=== PATIENT | female | born 1960 | race African-American/Black ===

== ENCOUNTER 2016-11-07 08:00 | Inpatient (IN) | payer MEDICARE, OTHER ==
[~2016-11-07 08:00] MED LIST: MORPHINE SULFATE 15 MG TABLET.SA PO PRN; RINGER'S SOLUTION,LACTATED 1,000 ML IV PRN; ROPIVACAINE HCL/PF 100 MG, EPINEPHrine 0.2 MG, KETOROLAC TROMETHAMINE 30 MG in NORMAL S... IJ PRN; TRANEXAMIC ACID 1,000 MG in NORMAL SALINE 100 ML IV PRN; ceFAZolin SODIUM 1 GM VIAL IV PRN
[2017-02-13] MEDS ORDERED: TRANEXAMIC ACID 1,000 MG in NORMAL SALINE 100 ML IV PRN (06:00)
[2017-02-13] MEDS ORDERED: ceFAZolin SODIUM 1 GM VIAL IV PRN (06:00)
[2017-02-13] MEDS ORDERED: RINGER'S SOLUTION,LACTATED 1,000 ML IV PRN (06:00)
[2017-02-13] MEDS ORDERED: MORPHINE SULFATE 15 MG TABLET.SA PO PRN (06:00)
[2017-02-13] MEDS ORDERED: ROPIVACAINE HCL/PF 100 MG, KETOROLAC TROMETHAMINE 30 MG, EPINEPHrine 0.2 MG in NORMAL S... IJ PRN (06:00)
[2017-02-13] MEDS ORDERED: RINGER'S SOLUTION,LACTATED 1,000 ML IV ONE ×3 (09:30→11:05)
--- NOTE | 2017-02-13 12:06 | OR ---
Anesthesia Procedure Note - Anesthesia Procedure Note Date of Service: 02/13/17 Narrative: Vital Signs - Last Taken Temp 36.7 C 02/13/17 12:02 Pulse 56 L 02/13/17 12:02 Resp 18 02/13/17 12:02 BP 132/75 02/13/17 12:02 Pulse Ox 98 02/13/17 12:02 O2 Oxygen Delivery Method Room Air 02/13/17 12:05 ANESTHESIA PROCEDURE NOTE Date of Procedure: 02/13/2017. Time of procedure: 929. Performed by: Waqar Mahmood CRNA Inspector Clip On Sunglasses: None. Preprocedure diagnosis: Left total knee arthroplasty. Post procedure diagnosis: Same. Procedure: Left ultrasound guided femoral block for postoperative analgesia. Indications: The patient is a 57 -year-old female who is requesting an ultrasound-guided femoral nerve block for postoperative analgesia related to left total knee arthroplasty. Findings: See below. Details of the procedure: The tissue over the intended target site was cleansed with ChloraPrep. 1 ml Lidocaine 1 % was infiltrated to the skin and subcutaneous tissue. Under sterile technique and ultrasound guidance a 21-gauge block needle was inserted anterior to the left femoral nerve . 30 mL's of 0.5% bupivacaine plus epinephrine 1:200,000 was injected after negative aspiration for blood. Needle tip and spread of local anesthetic surrounding the femoral nerve was observed throughout the injection with realtime ultrasound visualization. The needle was removed intact. No complications were noted. The images were retained in the Hospital medical database . EBL: Minimal. Fluids: N/A. Specimen: N/A. Post procedure condition: The patient tolerated the procedure well. No complications were noted. Thank you for this consultation. Waqar Mahmood CRNA
[2017-02-13] MEDS ORDERED: ACETAMINOPHEN 500 MG TABLET PO PRN (12:27)
[2017-02-13] MEDS ORDERED: ZOLPIDEM TARTRATE 5 MG TABLET PO PRN (12:27)
[2017-02-13] MEDS ORDERED: oxyCODONE HCL/ACETAMINOPHEN 1 TAB TABLET PO PRN (12:27)
[2017-02-13] MEDS ORDERED: MAGNESIUM HYDROXIDE 30 ML UDC PO PRN (12:27)
[2017-02-13] MEDS ORDERED: MAG HYDROX/ALUMINUM HYD/SIMETH 30 ML UDC PO PRN (12:27)
[2017-02-13] MEDS ORDERED: diphenhydrAMINE HCL 50 MG/ML VIAL IV PRN (12:27)
[2017-02-13] MEDS ORDERED: HYDROmorphone HCL 1 MG/ML DISP.SYRIN IV PRN (12:27)
[2017-02-13] MEDS ORDERED: PROMETHAZINE HCL 5 MG in DEXTROSE 5 % IN WATER 50 ML IV PRN ×2 (12:27)
--- NOTE | 2017-02-13 12:27 | POSTOP NO ---
Date of Surgery: 02/13/17 Anesthesia: spinal Patient Tolerated the Procedure: Well Post Operative Diagnosis/Procedures: Wholesale Loan Processor: Emir Horton PA-C Post-operative Diagnosis: Left knee degenerative joint disease Finding: Above Procedure: Left total knee arthroplasty Estimated Blood Loss: Minimal Specimens: Bone for disposal
[2017-02-13] MEDS ORDERED: NITROGLYCERIN 0.4 MG/TAB BTL SL PRN (12:29)
--- NOTE | 2017-02-13 12:31 | OR ---
Operative Report - Dictated Report Narrative: Date: 02/13/2017 Preoperative diagnosis: Left Knee degenerative joint disease. Postoperative diagnosis: Left Knee degenerative joint disease. Procedure: Left Total knee arthroplasty. Surgeon: Ozzie Simon M.D. Electrician Powerhouse: Emir Horton PA-C Anesthesia: Spinal with regional block and local periarticular joint injection. Complications: None Specimens: Bone for disposal. Estimated blood loss: Minimal. Tourniquet time: 75 Minutes at 325 millimeters of mercury. Retained implants: Depuy Attune size 5 left lugged cemented posterior stabilized femoral component. Size 5 fixed-bearing cemented tibial platform. 5 by 6 millimeter posterior stabilized cross-linked tibial insert. 35 millimeter medialized patella button. Indications: Mrs. Nye is a 57-year-old female who has had long-standing left knee pain and arthrosis. This patient was followed in my clinic for period of time with significant complaints of left knee pain consistent with arthritic changes. She had failed conservative measures including, but not limited to, activity modification, passage of time, medications, and other conservative measures. Patient wished to proceed with surgical treatment. The risks, benefits, and alternatives were discussed in clinic. The risks of , blood clots, bleeding, infection, nerve/tendon blood vessel/ injury, malposition of components, intraoperative fracture, postoperative limited range of motion, persistent pain, failure of components, and need for additional procedures. Patient wished to proceed consent was obtained after answering all questions. Procedure: After marking the correct extremity on the floor, the patient was taken to the operating room. A timeout was performed. IV antibiotics consisting of Ancef were administered prior to the procedure. A regional followed by spinal anesthetic was induced by anesthesia, per my request, on the operative table with all bony prominences well-padded. Hodge catheter was placed, and a bump was placed under the operative side buttock. SCDs and AMAN hose were utilized on the nonoperative leg. A well-padded tourniquet was applied to the operative thigh. The operative leg was then pre-scrubbed with alcohol prepped, and draped in a standard sterile fashion. After exsanguinating the extremity with an Esmarch bandage, the tourniquet was inflated. After marking out the anterior knee for standard incision centered over the patella, the skin was incised and dissected down to the joint retinaculum. The joint retinaculum was marked out as well as the horizontal axis of the patella, and a standard medial parapatellar arthrotomy was then made. The most proximal aspect of the quadriceps tendon and the patella tendon insertion were protected from release. A partial synovectomy was performed as well as a resection of the infrapatellar fat pad. The distal femoral fat pad proximal to the trochlea was also resected using cautery. The soft tissues were elevated off the medial aspect of the proximal tibia using a [place]aza elevator ensuring that we did not transect the medial collateral ligament. Upon initial evaluation range of motion was approximately 0 degrees to 130 degrees of flexion. There were signs of advanced arthrosis in the medial and patellofemoral joint spaces. There were large marginal osteophytes which were removed with a rongeur. The knee was hyperflexed and the patella was tucked laterally. Protecting the surrounding soft tissues with Homans, an entry drill was placed down the femoral canal using Whitesides line for guidance into the entry point. The intramedullary femoral alignment ko was utilized in order to cut the distal femur in 5 degrees of valgus resecting 10 millimeters of bone. Next the distal femur was sized to a size 5. A posterior referencing guide was utilized to place the distal femoral cutting block in 3 degrees of external rotation. This was pinned into place. The rotation was confirmed both visually and based on anatomic landmarks. The 4 in 1 cutting jig of the appropriate size was utilized in order to make all bony cuts. The angle wing was used to ensure no notching. Retractors were utilized in order to protect surrounding soft tissues. This cut did not result in any excessive notching. We then cut the box centered over the distal femur. This allowed for resection of the anterior and posterior cruciate ligaments. I then turned my attention to the preparation of the tibia. Using an extra medullary tibial alignment ko, 4 millimeters of bone was resected off the medial articular surface. This was made perpendicular to the mechanical axis of the joint with the alignment ko centered over the ankle mortise. The alignment ko was checked and was noted to be parallel to the mechanical axis, centered over the medial one third of the tibial tubercle, paralleling the anterior surface of the tibia. We then turned our attention to the remaining meniscus and soft tissues. These were removed while protecting the surrounding ligaments and soft tissues. The marginal osteophytes off the anterior, posterior, medial, lateral aspects of the femur and tibia were removed. The tibia was sized out to a size 5. Next the tibia was drilled and punched in an externally rotated position. Next the trial femur and a series of tibial inserts were utilized in order to allow for full extension and maximal flexion. It was found that a 6 millimeter insert gave the best range of motion and stability at multiple flexion points as well as at full extension there was less than 2 mm of gapping both medially and laterally. There is minimal anterior translation with the knee at 90 degrees of flexion and no signs of being able to dislocate the knee. The patella was then prepared. The initial thickness was 24 millimeters. This was reamed down to 14 millimeters parallel to the anterior surface of the patella. It was sized out to a size 35 medialized patella button. This was then drilled and trialed. Without any medial restraint the patella tracked appropriately and did not sublux or dislocate. At this point, it was felt these were the appropriate sized implants, and all trials were removed. The standard periarticular joint injection consisting of ropivacaine, Toradol, and epinephrine were injected into the periarticular joint tissues. The bony surfaces were thoroughly irrigated with a pulsatile- suction saline irrigation device. A bone plug from the prior resected anterior chamfer cut was placed into the drill hole at the distal femur. The bony surfaces were then dried in preparation for placement of the implants. The cement was vacuum mixed per the clean up supervisor's instructions. The cement was placed on the dry bony surfaces and posterior aspect of the implants. The implants were impacted into place, removing all extruded cement. At this point anesthesia administered tranexamic acid per protocol intravenously. The knee was placed in extension with axial loading with the trial insert while the cement cured. Once the cement cured, all remaining extruded cement was removed. The knee was placed through a range of motion with the trial insert to ensure appropriate range of motion and stability. Final range of motion was approximately 0 to 120 degrees. The knee was again thoroughly irrigated with pulsatile saline lavage. The final polyethylene insert was then impacted into place ensuring no retained soft tissues. The remaining periarticular joint injection was injected. A medium Hemovac drain was placed exiting superior laterally. The knee was then placed over a triangle and the arthrotomy was closed with interrupted #1 Vicryl after thoroughly irrigating the joint. The deep and subcutaneous tissues were closed with interrupted 0 and 3-0 Vicryl respectively. Skin was closed with a running subcutaneous 3-0 Monocryl and Prineo Dermabond dressing. 4 x 4's, Sof-Rol, and a full leg Jasvir wrap were applied. All sponge, needle, blade, and instrument counts were correct prior to closing the wounds. Postoperative condition: The patient was awoken and transferred to the postanesthesia care unit in stable condition. Plan is to be admitted to the inpatient medical/surgical floor postoperatively for 24 hours of IV antibiotics , physical therapy, occupational therapy, and medical comanagement. Patient will be weightbearing as tolerated with range of motion as tolerated. DVT prophylaxis will be with SCDs, AMAN hose, and pharmacological anticoagulation. Anticipated hospital stay is approximately 2-4 days.
[2017-02-13] MEDS: DEXTROSE 5%-LACTATED RINGERS 1,000 ML IV PRN ×2 (12:56→21:32)
[2017-02-13] MEDS: KETOROLAC TROMETHAMINE 15 MG/ML VIAL IV SCH ×2 (13:58→20:03)
[2017-02-13] MEDS: ceFAZolin SODIUM 1 GM in DEXTROSE 5 % IN WATER 100 ML IV SCH ×4 (15:56→22:35)
[2017-02-13] MEDS: ONDANSETRON HCL/PF 2 MG/ML VIAL IV PRN (20:01)
[2017-02-13] MEDS: ATENOLOL 50 MG TABLET PO SCH (21:04)
[2017-02-13] MEDS: MORPHINE SULFATE 15 MG TABLET.SA PO SCH (21:04)
[2017-02-13] MEDS: SENNOSIDES/DOCUSATE SODIUM 1 TAB TABLET PO SCH (21:04)
[2017-02-13] MEDS: ROSUVASTATIN CALCIUM 10 MG TABLET PO SCH (21:04)
[2017-02-14] MEDS: KETOROLAC TROMETHAMINE 15 MG/ML VIAL IV SCH ×4 (01:48→20:00)
[2017-02-14] MEDS ORDERED: CALCIUM CARBONATE 500 MG TAB.CHEW PO PRN (02:23)
[2017-02-14] MEDS: ceFAZolin SODIUM 1 GM in DEXTROSE 5 % IN WATER 100 ML IV SCH ×2 (04:09)
[2017-02-14] MEDS: HYDROcodone/ACETAMINOPHEN 1 EACH TABLET PO PRN ×3 (05:59→22:43)
[2017-02-14 06:01] LABS: Hematocrit 31.9 % (37.0-47.0); Hemoglobin 10.1 gm/dL (12.5-16.0); Mean Cell Volume 91.7 fl (78-100); Mean Corpuscular Hgb Conc 31.7 g/dl (32-36); Mean Platelet Volume 9.5 fl (6.0-9.5); Platelet Count 234 K/mm3 (150-450); Red Blood Count 3.48 M/mm3 (4.2-5.4); Red Cell Distribution Width 13.4 % (11.5-14.0); White Blood Count 6.9 K/mm3 (4.0-10.5)
[2017-02-14 06:21] LABS: Anion Gap 9.5 mmol/L (6.8-13.8); Calcium * 8.3 mg/dL (7.9-10.9); Carbon Dioxide 30.3 mmol/L (24-32.6); Estimated Creat Clear 57.8; Potassium 3.8 mmol/L (3.4-4.6)
--- NOTE | 2017-02-14 07:59 | PN ---
Subjective - Date and Time Seen Date: 02/14/17 Time: 07:55 Subjective Narrative: Subjective: Reports minimal pain. Was able to get to the chair with therapy. Pain is well-controlled. Voiding without any complications. Tolerating by mouth intake. Denies any nausea or vomiting. Denies calf pain. Slept well. Physical exam: Alert and oriented to person, place and time Left lower Extremity: Palpable dorsalis pedis pulse. Sensation grossly intact to light touch. Dressings clean and dry. Able to flex and extend ankle and toes. No excessive drainage. Calf and thigh are soft and nontender. Assessment: Postop day 1 status post left total knee arthroplasty. Plan: Due to the need for pain control, post-operative limited mobility, and the management of chronic medical conditions, she requires inpatient care. Continue with physical and occupational therapy weightbearing as tolerated. Continue with anticoagulation. 24 hours postoperative prophylactic antibiotics. Pain control with goal to rely on oral medications. Continue bowel regimen. Will need 6 weeks with walker or assitive device to protect joint while ambulating during the recovery process. Discharge planning - she has a full flight of stairs in order to gain entry into her house and thus this is our pearl in order to get her home. Discontinue drain and Hodge catheter. Repeat labs in a.m. Objective - Vitals Vitals: Last Vital Signs Temp 37.3 C 02/14/17 07:28 Pulse 78 02/14/17 07:28 Resp 19 02/14/17 07:28 BP 130/68 02/14/17 07:28 Pulse Ox 98 02/14/17 07:28 - Abnormal Lab Findings Abnormal Lab Findings: Abnormal Lab Results 02/14/17 02/14/17 Range/Units 05:55 05:55 RBC 3.48 L (4.2-5.4) M/mm3 Hgb 10.1 L (12.5-16.0) gm/dL Hct 31.9 L (37.0-47.0) % MCHC 31.7 L (32-36) g/dl Sodium 144 H (132-142) mmol/L Plasma Sodium 144 H (130-142) mmol/L Chloride 108 H (97-106) mmol/L Random Glucose 125 H (70-110) mg/dL Cauti Physician Documentation - Urinary Catheter Management Urethral (Hodge) Date of Insertion: 02/13/17 Time of Insertion: 10:10 Date of Removal: 02/14/17 Time of Removal: 06:30 Assessment/Plan - Problems/Diagnosis (1) Status post total left knee replacement Problem: Acute (2) Acute blood loss anemia Problem: Acute (3) Hypertension Problem: Chronic (4) CAD (coronary artery disease) Problem: Chronic (5) Depression Problem: Chronic (6) Hyperlipidemia Problem: Chronic
--- NOTE | 2017-02-14 08:18 | PN ---
Subjective - Date and Time Seen Date: 02/14/17 Time: 08:15 Subjective Narrative: Is doing very well. Little pain. Very positive attitude. Objective - Review of Systems Generalized/Overall Review: Reports: No Symptoms Reported EENTM: Reports: No Symptoms Reported Respiratory: Reports: No Symptoms Reported Cardiac: Reports: No Symptoms Reported Abdominal: Reports: No Symptoms Reported Genitourinary Symptoms: Reports: No Symptoms Reported Musculoskeletal Complaints: Reports: Joint Pain Neurological: Reports: No Symptoms Reported Skin: Reports: No Symptoms Reported Endocrine: Reports: No Symptoms Reported Misc: All systems neg except as marked - Vitals Vitals: Last Vital Signs Selected Entries 02/14/17 07:28 Temperature 37.3 C Temperature Oral Source Pulse Rate 78 Respiratory 19 Rate Blood Pressure 130/68 Blood Pressure Supine Position O2 Sat by Pulse 98 Oximetry Oxygen Delivery Room Air Method - Abnormal Lab Findings Abnormal Lab Findings: Abnormal Lab Results 02/14/17 02/14/17 Range/Units 05:55 05:55 RBC 3.48 L (4.2-5.4) M/mm3 Hgb 10.1 L (12.5-16.0) gm/dL Hct 31.9 L (37.0-47.0) % MCHC 31.7 L (32-36) g/dl Sodium 144 H (132-142) mmol/L Plasma Sodium 144 H (130-142) mmol/L Chloride 108 H (97-106) mmol/L Random Glucose 125 H (70-110) mg/dL - Exam Constitutional: Present: Alert, Oriented x3, Cooperative, Well developed, No distress, Obese ENT Exam: Present: normal ENT inspection, hearing grossly normal Neck: Present: normal inspection Respiratory: Present: lungs clear, no respiratory distress Cardiovascular/Chest: Present: regular rate, rhythm, no chest tenderness Abdomen: Present: Normal bowel sounds, soft, nontender, nondistended, no rebound tenderness, no hepatospenomegaly, no masses, obese Extremity: Present: no pedal edema, other - dressing intact Skin Exam: Present: normal color, warm/dry, no cyanosis Neurologic: Present: alert, oriented x 3 Appearance: Present: appropriate appearance, appropriate insight, neat, no memory impairment Eye contact: Present: cooperative, good eye contact, normal speech, avoids eye contact Thoughts: Present: normal thought pattern Cauti Physician Documentation - Urinary Catheter Management Urethral (Hodge) Date of Insertion: 02/13/17 Time of Insertion: 10:10 Date of Removal: 02/14/17 Time of Removal: 06:30 Assessment/Plan Plan Narrative: Follow post op protocol - Problems/Diagnosis (1) Status post total left knee replacement Problem: Acute
[2017-02-14] MEDS: FAMOTIDINE 20 MG TABLET PO SCH (08:19)
[2017-02-14] MEDS: ATENOLOL 50 MG TABLET PO SCH ×2 (08:19→20:00)
[2017-02-14] MEDS: amLODIPine BESYLATE 10 MG TABLET PO SCH (08:20)
[2017-02-14] MEDS: MORPHINE SULFATE 15 MG TABLET.SA PO SCH ×2 (08:22→20:00)
[2017-02-14] MEDS: ONDANSETRON HCL/PF 2 MG/ML VIAL IV PRN (10:19)
[2017-02-14] MEDS ORDERED: ENOXAPARIN SODIUM 40 MG/0.4 ML SYRG SC SCH (11:27)
[2017-02-14] MEDS: ROSUVASTATIN CALCIUM 10 MG TABLET PO SCH (20:00)
[2017-02-14] MEDS: SENNOSIDES/DOCUSATE SODIUM 1 TAB TABLET PO SCH (20:00)
[2017-02-15] MEDS: KETOROLAC TROMETHAMINE 15 MG/ML VIAL IV SCH ×2 (00:47→07:15)
[2017-02-15 06:05] LABS: Hematocrit 29.5 % (37.0-47.0); Hemoglobin 9.7 gm/dL (12.5-16.0); Mean Cell Volume 90.8 fl (78-100); Mean Corpuscular Hemoglobin 29.8 pg (27-31); Mean Corpuscular Hgb Conc 32.9 g/dl (32-36); Mean Platelet Volume 9.9 fl (6.0-9.5); Platelet Count 229 K/mm3 (150-450); Red Blood Count 3.25 M/mm3 (4.2-5.4); Red Cell Distribution Width 13.2 % (11.5-14.0); White Blood Count 8.7 K/mm3 (4.0-10.5)
[2017-02-15 06:13] LABS: Anion Gap 11.5 mmol/L (6.8-13.8); BUN/Creatinine Ratio 10.8 (9.0-21.6); Calcium * 8.5 mg/dL (7.9-10.9); Carbon Dioxide 27.2 mmol/L (24-32.6); Estimated Creat Clear 54.4; Potassium 3.7 mmol/L (3.4-4.6)
[2017-02-15 06:37] VITALS: BP 117/61
[2017-02-15] MEDS: HYDROcodone/ACETAMINOPHEN 1 EACH TABLET PO PRN (06:44)
--- NOTE | 2017-02-15 07:37 | PN ---
Subjective - Date and Time Seen Date: 02/15/17 Time: 07:32 Subjective Narrative: A little more pain today. Percocet made her nauseated. Using Vicodin. Bandage is coming off today. Thinks she is going home today. Objective - Review of Systems Generalized/Overall Review: Reports: No Symptoms Reported EENTM: Reports: No Symptoms Reported Respiratory: Reports: No Symptoms Reported Cardiac: Reports: No Symptoms Reported Abdominal: Reports: No Symptoms Reported Genitourinary Symptoms: Reports: No Symptoms Reported Musculoskeletal Complaints: Reports: Joint Pain Neurological: Reports: No Symptoms Reported Skin: Reports: No Symptoms Reported Endocrine: Reports: No Symptoms Reported Misc: All systems neg except as marked - Vitals Vitals: Last Vital Signs Selected Entries 02/15/17 06:36 Temperature 37.3 C Temperature Temporal Artery Source Scan Pulse Rate 72 Respiratory 19 Rate Blood Pressure 117/61 Blood Pressure Supine Position O2 Sat by Pulse 98 Oximetry Oxygen Delivery Room Air Method - Abnormal Lab Findings Abnormal Lab Findings: Abnormal Lab Results 02/15/17 02/15/17 Range/Units 05:45 05:45 RBC 3.25 L (4.2-5.4) M/mm3 Hgb 9.7 L (12.5-16.0) gm/dL Hct 29.5 L (37.0-47.0) % MPV 9.9 H (6.0-9.5) fl Random Glucose 111 H (70-110) mg/dL - Exam Constitutional: Present: Alert, Oriented x3, Cooperative, Well developed, No distress, Obese ENT Exam: Present: normal ENT inspection, hearing grossly normal Neck: Present: normal inspection Respiratory: Present: normal breath sounds, no respiratory distress Cardiovascular/Chest: Present: regular rate, rhythm, no murmur Abdomen: Present: Normal bowel sounds, soft, nontender, nondistended, no rebound tenderness, no hepatospenomegaly, no masses, obese Extremity: Present: normal range of motion, non-tender, no pedal edema, other - left leg wrapped Skin Exam: Present: normal color, warm/dry, no cyanosis Neurologic: Present: alert, oriented x 3 Appearance: Present: appropriate appearance, appropriate insight, neat, no memory impairment Eye contact: Present: cooperative, good eye contact, normal speech Thoughts: Present: normal thought pattern Cauti Physician Documentation - Urinary Catheter Management Urethral (Hodge) Date of Insertion: 02/13/17 Time of Insertion: 10:10 Date of Removal: 02/14/17 Time of Removal: 06:30 Assessment/Plan Plan Narrative: normal progress, follow protocol - Problems/Diagnosis (1) Status post total left knee replacement Problem: Acute
--- NOTE | 2017-02-15 08:23 | DS ---
(1) Status post total left knee replacement Problem: Acute (2) Acute blood loss anemia Problem: Acute (3) Hypertension Problem: Chronic (4) CAD (coronary artery disease) Problem: Chronic (5) Depression Problem: Chronic (6) Hyperlipidemia Problem: Chronic Description of Stay: Mrs. Nye was admitted to the floor after undergoing left total knee arthroplasty. Tolerated this well. Was admitted to the floor postoperatively for 24 hours of IV antibiotics, pain control, medical comanagement, and occupational and physical therapy. OT and PT were consulted to assist with activities of daily living and ambulation. Was made weightbearing as tolerated with range of motion as tolerated. Pain was initially controlled with IV regimen. This was transitioned to oral once tolerating a by mouth intake. Was resumed on home diet and medications. Had a Hodge catheter inserted and the operating room which was discontinued on postoperative day 1. A drain was placed intraoperatively into the knee which was discontinued on postoperative day 1. Lovenox SCD and AMAN hose were utilized for DVT prophylaxis. Vital signs remained stable to the hospital course. Serial labs were obtained which showed a final hemoglobin of 9.7 grams. BMP was reviewed and was stable. Physical examination throughout the hospital course showed an extremity that had sensation that was intact to light touch, palpable pulses, a benign wound, motor intact to the toes, ankle, and knee. Knee range of motion was approximately 0 degrees to 70 degrees. Once an oral pain regimen was tolerated and physical therapy goals were met, it was felt that they were stable for discharge to home. Instructions: Continue with weightbearing as tolerated and range of motion as tolerated. It is okay to shower and get the wound wet as long as there is no drainage from the wound. Do not bathe or soak the wound. If there is any drainage from the wound keep the wound clean and dry and cover with dry gauze and tape. Change every 2-3 days as needed if there is any drainage. Cover wound while showering if there is any drainage. Continue with physical therapy. Resume home diet. Report any fever over 101.5 Fahrenheit, uncontrolled pain, increased drainage, foul odor of drainage, new or increased calf pain or shortness of breath, or any other significant complaints. A 325mg dialy aspirin will be started after finishing anticoagulation if not allergic. Continue with AMAN hose on the operative extremity until instructed otherwise. No driving until instructed otherwise. Follow up in approximately 10-14 days. Procedures Performed: see notes below List Procedures: Left total knee arthroplasty Discharge Disposition: Home self care Disposition: Still a patient Condition: Good Discharge Activity: Activity as tolerated, Weight bearing Discharge Diet: General/regular food [facility] Therapy: Physicial Therapy Referrals: Manish Martin MD [Primary Care Provider] - Additional Patient Instructions (free text): Follow-up in the office with Dr. Simon on 02/28/17 at 1:00pm. [facility] new at discharge. Please call report and fax orders and face to face upon discharge. Prescriptions (Any new or edited meds): Enoxaparin Sodium [Lovenox] 40 mg SC Q24H #7 disp.syrin HYDROcodone/ACETAMINOPHEN [Rumney 5-325] 1 each PO Q2H PRN #90 tablet PRN Reason: Moderate Pain Morphine Sulfate [Ms Contin] 15 mg PO Q12H #20 tablet.sa Promethazine HCl [Phenergan (Promethazine)] 25 mg PO Q6H PRN #30 tab PRN Reason: nausea/vomiting Complete Home Medications List: Complete Home Medication List: Ranitidine HCl [Zantac] 300 mg PO DAILY 08/06/12 Aspirin [Aspirin Enteric Coated] 81 mg PO DAILY 11/03/14 Atenolol [Tenormin] 50 mg PO BID 11/03/14 Nitroglycerin [Nitrostat] 0.4 mg SL [id number] PRN 11/03/14 Naproxen Sodium [Aleve] 220 mg PO BID PRN 10/31/16 Rosuvastatin Calcium [Crestor] 5 mg PO HS 10/31/16 amLODIPine BESYLATE [Norvasc] 10 mg PO DAILY 10/31/16 Enoxaparin Sodium [Lovenox] 40 mg SC Q24H #7 disp.syrin 02/15/17 HYDROcodone/ACETAMINOPHEN [Rumney 5-325] 1 each PO Q2H PRN #90 tablet 02/15/17 Morphine Sulfate [Ms Contin] 15 mg PO Q12H #20 tablet.sa 02/15/17 Promethazine HCl [Phenergan (Promethazine)] 25 mg PO Q6H PRN #30 tab 02/15/17 Sennosides/Docusate Sodium [Senokot-S] 2 tab PO HS tablet 02/15/17 Amb Orders for Discharge: PT Evaluation and Treatment Facility: [facility], Location: Rehabilitation Services
[2017-02-15] MEDS: amLODIPine BESYLATE 10 MG TABLET PO SCH (09:02)
[2017-02-15] MEDS: FAMOTIDINE 20 MG TABLET PO SCH (09:03)
[2017-02-15] MEDS: ATENOLOL 50 MG TABLET PO SCH (09:05)
[2017-02-15] MEDS: MORPHINE SULFATE 15 MG TABLET.SA PO SCH (09:15)
== END 2017-02-15 10:23 | disposition home health service (06) | DRG 470 ==
LOC: MS 02-13 08:05
PROVIDERS: ADMIT Orthopaedic Surgery; ATTEND Orthopaedic Surgery
PROC: 0SRD0J9 Replacement of Left Knee Joint with Synthetic Substitute, Cemented, Open Approach (ICD-10-PCS; principal; 2017-02-13 09:45)
DX: M17.12 Unilateral primary osteoarthritis, left knee (principal); D62 Acute posthemorrhagic anemia; I10 Essential (primary) hypertension; E78.5 Hyperlipidemia, unspecified; I25.10 Atherosclerotic heart disease of native coronary artery without angina pectoris; Z95.5 Presence of coronary angioplasty implant and graft
CPT/HCPCS: 27447; 36415; 73560; 80048; 85027; 97110; 97116; 97162; 97165; 97530; J2405